=== PATIENT | male | born 1960 | race Caucasian/White ===

== ENCOUNTER → 2017-10-30 | Outpatient (CLI) | payer BC ==
[2014-12-11 09:56] VITALS: BP 126/79
[~2017-10-30] MED LIST: ADVAIR 100/28 DISKU1 INH; ALBUTEROL0.09 MG/A4 INH; MULTI VITAMINS1 TAB PO; PHENTERMINE37.5 MG PO
[2017-10-30 18:13] LABS: BASO # 0.1 (0.02-0.10); EOS # 0.2 (0.04-0.40); EOS % 2.1 % (0.0-4.0); HEMATOCRIT 45.1 % (42.0-52.0); LYMPH# 2.7 (1.50-4.00); MEAN CELL VOLUME 87 fl (78-100); MEAN CORPUSCULAR HEMOGLOBIN 29 pg (27-31); MEAN CORPUSCULAR HGB CONC 33 g/dL (33-37); MEAN PLATELET VOLUME 10.5 fl (7.4-10.4); MONO # 0.8 (0.20-0.80); NEU # 7.5 (1.40-6.50); PLATELET COUNT 264 K/mm3 (130-400); RED BLOOD COUNT 5.21 M/mm3 (4.20-5.60); RED CELL DISTRIBUTION WIDTH 13.9 % (11.5-14.5); WHITE BLOOD COUNT 11.2 K/mm3 (4.8-10.8)
[2017-10-30 21:57] LABS: BUN/CREATININE RATIO 18.5 (6.0-26.0); CALCIUM 9.3 mg/dL (8.4-10.2); POTASSIUM 4.4 mmol/L (3.6-5.0); TOTAL BILIRUBIN 0.8 mg/dL (0.2-1.3); TOTAL PROTEIN 6.7 g/dL (6.3-8.2)
== END ==
LOC: LAB 17:31
PROVIDERS: Physician Assistant
DX: R53.83 Other fatigue (principal); R22.1 Localized swelling, mass and lump, neck

== ENCOUNTER → 2018-05-04 | Outpatient (CLI) | payer BC ==
[2014-12-11 09:56] VITALS: BP 126/79
[2018-05-04 09:40] LABS: EOS # 0.3 (0.04-0.40); EOS % 4.3 % (0.0-4.0); HEMATOCRIT 47.6 % (42.0-52.0); HEMOGLOBIN 15.5 g/dL (13.5-18.0); LYMPH# 1.7 (1.50-4.00); MEAN CELL VOLUME 86 fl (78-100); MEAN CORPUSCULAR HEMOGLOBIN 28 pg (27-31); MEAN CORPUSCULAR HGB CONC 33 g/dL (33-37); MEAN PLATELET VOLUME 9.7 fl (7.4-10.4); MONO # 0.6 (0.20-0.80); NEU # 5.2 (1.40-6.50); PLATELET COUNT 273 K/mm3 (130-400); RED BLOOD COUNT 5.57 M/mm3 (4.20-5.60); RED CELL DISTRIBUTION WIDTH 14.6 % (11.5-14.5); WHITE BLOOD COUNT 7.9 K/mm3 (4.8-10.8)
[2018-05-04 10:00] LABS: ALBUMIN 4.3 g/dL (3.5-5.0); BUN/CREATININE RATIO 11.8 (6.0-26.0); CALCIUM 9.9 mg/dL (8.4-10.2); POTASSIUM 4.4 mmol/L (3.6-5.0); TOTAL BILIRUBIN 0.8 mg/dL (0.2-1.3); TOTAL PROTEIN 7.9 g/dL (6.3-8.2)
[2018-05-04 10:47] LABS: ERYTHROCYTE SEDIMENTATION RATE 6 mm/hr (0-20)
[2018-05-04 22:58] LABS: TESTOSTERONE 326 ng/dL (221-716)
== END ==
LOC: LAB 09:23
PROVIDERS: Internal Medicine
DX: Z00.00 Encounter for general adult medical examination without abnormal findings (principal); Z12.5 Encounter for screening for malignant neoplasm of prostate; Z12.11 Encounter for screening for malignant neoplasm of colon

== ENCOUNTER → 2019-06-27 | Outpatient (CLI) | payer BC ==
[2014-12-11 09:56] VITALS: BP 126/79
== END ==
LOC: RAD 12:15
DX: R59.9 Enlarged lymph nodes, unspecified (principal); R22.1 Localized swelling, mass and lump, neck; M54.2 Cervicalgia

== ENCOUNTER → 2019-07-11 | Outpatient (CLI) | payer BC ==
[2014-12-11 09:56] VITALS: BP 126/79
[2019-07-11 16:26] LABS: BASO # 0.1 (0.02-0.10); EOS # 0.2 (0.04-0.40); EOS % 2.3 % (0.0-4.0); HEMATOCRIT 45.4 % (42.0-52.0); HEMOGLOBIN 14.9 g/dL (13.5-18.0); LYMPH# 2.2 (1.50-4.00); MEAN CELL VOLUME 86 fl (78-100); MEAN CORPUSCULAR HEMOGLOBIN 28 pg (27-31); MEAN CORPUSCULAR HGB CONC 33 g/dL (33-37); MEAN PLATELET VOLUME 9.8 fl (7.4-10.4); NEU # 6.9 (1.40-6.50); PLATELET COUNT 268 K/mm3 (130-400); RED BLOOD COUNT 5.26 M/mm3 (4.20-5.60); WHITE BLOOD COUNT 10.4 K/mm3 (4.8-10.8)
[2019-07-11 16:28] LABS: POTASSIUM 4.4 mmol/L (3.5-5.1)
[2019-07-11 16:29] LABS: CALCIUM 8.9 mg/dL (8.3-10.5)
[2019-07-11 16:30] LABS: TOTAL PROTEIN 7.6 g/dL (6.4-8.3)
[2019-07-11 16:32] LABS: TOTAL BILIRUBIN 0.8 mg/dL (0.2-1.2)
[2019-07-11 18:30] LABS: ERYTHROCYTE SEDIMENTATION RATE 6 mm/hr (0-20)
== END ==
LOC: LAB 16:01
PROVIDERS: Internal Medicine
DX: R59.1 Generalized enlarged lymph nodes (principal); R53.83 Other fatigue

== ENCOUNTER → 2020-09-26 | Outpatient (CLI) | payer OTHER ==
[2014-12-11 09:56] VITALS: BP 126/79
== END ==
LOC: LAB 08:35
DX: U07.1 COVID-19 (principal); H57.89 Other specified disorders of eye and adnexa

== ENCOUNTER → 2022-03-16 | Outpatient (CLI) | payer BC | LOC: RAD 07:50 → VAS 07:50 | DX: S62.521A Displaced fracture of distal phalanx of right thumb, initial encounter for closed fracture (principal) ==